=== PATIENT | female | born 1945 | race Caucasian/White ===

== ENCOUNTER 2017-10-22 09:13 | Day surgery (SDC) | payer MEDICARE, BC ==
[~2017-10-22 09:13] MED LIST: ACETAMINOPHEN 1,000 MG/100 ML BTL IV ONE
[2017-10-22] MEDS ORDERED: HYDROCODONE/APAP 5/325MG TABLET PO ONE (09:14)
[2017-10-22] MEDS ORDERED: PROPOFOL 10 MG/ML VIAL IV ONE (09:14)
[2017-10-22] MEDS ORDERED: KETOROLAC 30 MG/ML VIAL IVP ONE (09:14)
[2017-10-22] MEDS ORDERED: ONDANSETRON HCL IV 4 MG/2 ML VIAL IVP ONE (09:14)
[2017-10-22] MEDS ORDERED: EPHEDRINE SULFATE 50 MG/ML ML IV ONE (09:14)
[2017-10-22] MEDS ORDERED: FENTANYL PF 100MCG/2ML VIAL IV ONE (09:14)
[2017-10-22] MEDS ORDERED: MIDAZOLAM HCL 2MG/2ML VIAL IV ONE (09:14)
[2017-10-22] MEDS ORDERED: LIDOCAINE 2% MDV (20MG/ML) 20ML VIAL IV ONE (09:14)
[2017-10-22] MEDS ORDERED: SEVOFLURANE 250 ML INH ONE (09:14)
--- NOTE | 2017-10-23 12:40 | Operative Note ---
DATE OF SURGERY: 10/22/2017 Surgeon: Ronaldo Mir DO PREOPERATIVE DIAGNOSES: 1. Dupuytren's contracture of the palm and 4th finger right hand. 2. Dupuytren's contracture of right 5th finger. POSTOPERATIVE DIAGNOSIS: 1. Dupuytren's contracture of the palm and 4th finger right hand. 2. Dupuytren's contracture of right 5th finger. OPERATION: 1. Palmar fasciectomy in 4th finger of the right hand. 2. Fasciectomy of the right 5th finger. DESCRIPTION OF PROCEDURE: This 72-year-old female was taken to the operating room and placed in the supine position on the operating room table where general anesthesia was induced. The right upper extremity was elevated, prepped with Hibiclens, and draped in the usual sterile fashion. It was exsanguinated and the tourniquet inflated to 250 mmHg. A lead hand was used to support the hand and fingers during the operative procedure. We made a zigzag incision starting from about the mid-palm overlying the 4th metacarpal and made a zigzag-type incision down to the level of the mid portion of the proximal phalanx of the right ring finger. Undermining of the skin was performed to remove the adhesions to the skin, and the palmar fascia mass was then free and elevated at its proximal margin and then it was gently teased from its dorsal attachments. This was taken down to the level of the mid portion of the proximal phalanx of the right ring finger. This was then removed and sent for pathology. The wound was irrigated and hemostasis obtained with the electrocautery. We then directed our attention to the right ring finger and a Chevron-type incision was made there overlying the mass on the volar ulnar aspect of the proximal phalanx and it extended into the PIP joint. We bluntly and sharply dissected down to expose the dorsal surface of this mass and then carefully and gently elevated this mass away from the neurovascular bundle and teased it away separate and then cut it, removed it, and sent it for pathology. This wound was also irrigated and the tourniquet was released and hemostasis obtained with the electrocautery. The wound closed with interrupted 6-0 nylon suture. The zigzag incision in the palm which extended into the right ring finger was also closed with interrupted 6-0 nylon suture. Sterile dressings were applied with plaster splint immobilization, and the patient was taken to the recovery room in satisfactory condition. GROSS PATHOLOGY: This patient demonstrated markedly thickened fibrotic palmar fascia consistent with Dupuytren's contracture which was removed in the manner described above. The neurovascular bundles on both sides of the 4th ray were identified and protected as they were in the ring and little fingers. CC: DO NBA Hu
== END 2017-10-22 12:25 | disposition home or self-care (01) ==
LOC: SUR 09:13
PROVIDERS: ATTEND Orthopaedic Surgery
DX: M72.0 Palmar fascial fibromatosis [Dupuytren] (principal); M20.091 Other deformity of right finger(s)
CPT/HCPCS: 26123; 26125; 01810; J1885; J2405; J3010

== ENCOUNTER 2018-02-18 07:09 | Day surgery (SDC) | payer MEDICARE, BC ==
[2018-02-18] MEDS ORDERED: LIDOCAINE 2% MDV (20MG/ML) 20ML VIAL IV ONE ×2 (07:10)
[2018-02-18] MEDS ORDERED: FENTANYL PF 100MCG/2ML VIAL IV ONE (07:10)
[2018-02-18] MEDS ORDERED: PROPOFOL 10 MG/ML VIAL IV ONE (07:10)
[2018-02-18] MEDS ORDERED: MIDAZOLAM HCL 2MG/2ML VIAL IV ONE (07:10)
--- NOTE | 2018-02-20 17:36 | Operative Note ---
DATE OF SURGERY: 02/18/2018 PREOPERATIVE DIAGNOSIS: Carpal tunnel syndrome of the right wrist. POSTOPERATIVE DIAGNOSIS: Carpal tunnel syndrome of the right wrist. OPERATIVE PROCEDURE: Decompression right median nerve of the wrist using 3.5 loop magnification. STAFF SURGEON: Galen Skinner MD REFERRING PHYSICIAN: Loraine Escudero D.O. DESCRIPTION: This 73-year-old female was taken to the Operating Room and placed in the supine position on the operating room table. Assisted local anesthesia was used. 1% Xylocaine plain was used as a local anesthetic. After instillation of the local anesthetic and prepping and draping in the usual sterile fashion, a longitudinal incision was made following the hypothenar crease from the level of the base of the web space of the thumb to the flexor crease of the wrist, dissection carried down through the skin and subcutaneous tissue. Hemostasis was obtained with electrocautery. The palmar fascia was divided in line with the skin incision. The flexor retinaculum was identified, punctured, and then split to its proximal margin with the contents of the carpal tunnel under direct vision. The transverse carpal ligament was transected along its ulnar border and the radial flap was raised to exposed the entire median nerve under the transverse carpal ligament. There was mild hourglass deformity noted of the median nerve and the recurrent motor branch was seen to be in a slightly abnormal position, more centrally located on the ventral surface of the nerve than is usually expected. The wound was then irrigated and suctioned, tourniquet released, and hemostasis was obtained with electrocautery. The skin was closed with interrupted 6-0 nylon suture. Sterile dressings were applied and the patient taken to the Recovery Room in satisfactory condition after plaster splint immobilization was applied. cc: Dr. Loraine Escudero JOB NUMBER: [id number] [facility]
== END 2018-02-18 10:35 | disposition home or self-care (01) ==
LOC: SUR 07:09
PROVIDERS: ATTEND Orthopaedic Surgery
DX: G56.01 Carpal tunnel syndrome, right upper limb (principal); J44.9 Chronic obstructive pulmonary disease, unspecified; F17.210 Nicotine dependence, cigarettes, uncomplicated
CPT/HCPCS: 64721; 64727; 01810; J3010